=== PATIENT | male | born 1990 | race Caucasian/White ===

== ENCOUNTER 2016-06-16 03:12 | Emergency (ER) | payer OTHER ==
[2016-06-16 03:30] VITALS: BP 98/65; PULSE 128; BMI 25.1
--- NOTE | 2016-06-16 03:53 | PDOC ---
History of Present Illness - General Chief Complaint: Respiratory Stated Complaint: COLD SYMPTOMS Time Seen by Provider: 06/16/16 03:21 History Source: Patient - History of Present Illness Timing/Duration: reports: yesterday Possible Cause: Yes: no prior episodes Associated Symptoms: reports: fever/chills, nasal congestion. denies: sore throat, wheezing Past History - Travel Traveled outside of the country in the last 30 days: No Close contact w/someone who was outside of country & ill: No - Past Medical History Allergies/Adverse Reactions: Allergies Allergy/AdvReac Type Severity Reaction Status Date / Time Penicillins Allergy Severe Hives Verified 06/16/16 03:26 seafood Allergy Severe Difficulty Uncoded 06/16/16 03:26 Breathing Home Medications: Ambulatory Orders Pheniramine/PE/Acetaminophen [Theraflu Cold-Sore Throat Pkt] 1 each PO ONCE Asthma: Yes - Surgical History Appendectomy: Yes - Psycho/Social/Smoking Cessation Hx Anxiety: No Suicidal Ideation: No Smoking Status: No Smoking History: Never smoked Number of Cigarettes Smoked Daily: 0 Hx Alcohol Use: No Drug/Substance Use Hx: No Respiratory Specific PMHX - Complaint Specific PMHX Angina: No Bronchitis: No Pulmonary Embolus: No TB (Tuberculosis): No Review of Systems - Review of Systems Able to Perform ROS?: Yes Comments:: 06/16/16 03:54 CONSTITUTIONAL: +fever/chills Absent: diaphoresis, generalized weakness, malaise, loss of appetite HEENT: Absent: rhinorrhea, nasal congestion, throat pain, throat swelling, difficulty swallowing, mouth swelling, ear pain, eye pain, visual Changes CARDIOVASCULAR: Absent: chest pain, loss of consciousness, palpitations, irregular heart rate, peripheral edema RESPIRATORY: +cough Absent: shortness of breath, dyspnea with exertion, orthopnea, wheezing, stridor , hemoptysis GASTROINTESTINAL: Absent: abdominal pain, abdominal distension, nausea, vomiting, diarrhea, constipation, melena, hematochezia GENITOURINARY: Absent: dysuria, frequency, urgency, hesitancy, hematuria, flank pain, genital pain MUSCULOSKELETAL: Absent: myalgia, arthralgia, joint swelling SKIN: Absent: rash, itching, pallor HEMATOLOGIC/IMMUNOLOGIC: Absent: easy bleeding, easy bruising, lymphadenopathy, frequent infections ENDOCRINE: Absent: unexplained weight gain, unexplained weight loss, heat intolerance, cold intolerance NEUROLOGIC: Absent: headache, focal weakness or paresthesias, dizziness, unsteady gait, seizure, mental status changes, bladder or bowel incontinence PSYCHIATRIC: Absent: anxiety, depression, suicidal or homicidal ideation, hallucinations. Is the patient limited Armenian proficient: No *Physical Exam - Vital Signs Last Vital Signs Temp Pulse Resp BP Pulse Ox 102.9 F H 128 H 24 98/65 100 06/16/16 03:26 06/16/16 03:06/16/16 03:06/16/16 03:06/16/16 03:26 ED Treatment Course - RADIOLOGY Radiograph Interpretation: 06/16/16 05:16 CXR 2v NAD Progress Note - Progress Note Progress Note: 25-year-old male presents to the emergency department with his partner complaining of fever, chills since yesterday morning. Patient states he developed a mild cough today but denied any dizziness, lightheadedness, headaches, difficulty swallowing, chest pain, shortness of breath, abdominal pains. Patient did not take any antipyretics did take TheraFlu 4 hours ago. *DC/Admit/Observation/Transfer Diagnosis at time of Disposition: Fever Qualifiers: Fever type: unspecified Qualified Code(s): R50.9 - Fever, unspecified - Discharge Dispostion Disposition: HOME Condition at time of disposition: Improved - Referrals Referrals: Elvie Mac [Primary Care Provider] - - Patient Instructions Printed Discharge Instructions: DI for Fever (Symptom) -- Adult Additional Instructions: Rest Increase fluids Tylenol/motriin as needed for fever Return to the ER for severe/persistent/worsening symptoms
[2016-06-16] MEDS ORDERED: ACETAMINOPHEN 325 MG TABLET (FP) ONE (03:54)
[2016-06-16 05:06] VITALS: TEMP 101.6
== END 2016-06-16 05:28 | disposition home or self-care (01) ==
LOC: JER 03:12
DX: R50.9 Fever, unspecified (principal)
CPT/HCPCS: 71020-TC; 87804; 99282-25

== ENCOUNTER 2020-11-29 19:17 | Emergency (ER) | payer OTHER ==
[2020-11-29 19:37] VITALS: BP 132/79; PULSE 87; TEMP 97.9; BMI 34.4
== END 2020-11-29 23:00 | disposition home or self-care (01) ==
LOC: JERFT 19:17
DX: N50.811 Right testicular pain (principal)
CPT/HCPCS: 76870-TC; 99284-25

== ENCOUNTER 2023-07-03 15:46 | Emergency (ER) | payer OTHER ==
[2023-07-03 15:51] VITALS: BP 142/77; PULSE 95; RESP 20; TEMP 98.3; BMI 28.7
== END 2023-07-03 16:33 | disposition home or self-care (01) ==
LOC: JERFT 15:46
DX: R21 Rash and other nonspecific skin eruption (principal); L50.3 Dermatographic urticaria
CPT/HCPCS: 99283-25

== ENCOUNTER 2024-06-21 18:11 | Emergency (ER) | payer OTHER ==
[2024-06-21] MEDS ORDERED: morphine CARPU-JECT 2 MG/1 ML DISP.SYRIN IVPUSH ONE (19:35)
[2024-06-21 19:52] VITALS: BP 123/82; PULSE 93; RESP 18; TEMP 98.2; BMI 28.7
[2024-06-21] MEDS ORDERED: AZITHROMYCIN 500 MG TABLET ONE (20:04)
[2024-06-21] MEDS ORDERED: DEXAMETHASONE 4 MG TABLET (FP) ONE (20:05)
[2024-06-21] MEDS: DEXAMETHASONE 4 MG TABLET (FP) PO ONE (20:06)
[2024-06-21] MEDS: AZITHROMYCIN 500 MG TABLET PO ONE (20:07)
== END 2024-06-21 20:12 | disposition home or self-care (01) ==
LOC: FER 18:11
DX: J18.9 Pneumonia, unspecified organism (principal); R05.9 Cough, unspecified; R06.02 Shortness of breath; R04.2 Hemoptysis
CPT/HCPCS: 71046-TC-FY; 93005; 93010; 99283-25